=== PATIENT | male | born 1990 | race Caucasian/White ===

== ENCOUNTER 2024-05-21 23:30 | Emergency (ER) | payer OTHER, BC ==
[~2024-05-21] VITALS: Ht 190.5 cm; Wt 108.0 kg
[2024-05-21 23:34] VITALS: O2SAT 96
[2024-05-21 23:42] VITALS: BP 156/96; PULSE 95; RESP 16; TEMP 98.3; O2SAT 98
[2024-05-22] MEDS ORDERED: SODIUM CHLORIDE 0.9% 1,000 ML IV ONE (00:15)
[2024-05-22] MEDS ORDERED: DEXAMETHASONE 10 MG/ML VIAL IV ONE (00:15)
[2024-05-22] MEDS ORDERED: KETOROLAC 30MG/ML VIAL IV ONE (00:15)
[2024-05-22] MEDS ORDERED: DIPHENHYDRAMINE 50MG/ML VIAL IV ONE (00:15)
== END 2024-05-22 04:17 | disposition left against medical advice (07) ==
LOC: ER 05-22 01:02
DX: J02.9 Acute pharyngitis, unspecified (principal); I48.91 Unspecified atrial fibrillation; J45.909 Unspecified asthma, uncomplicated
CPT/HCPCS: 99281; J7030